=== PATIENT | male | born 1990 | race Two or more races ===

== ENCOUNTER 2024-06-22 14:53 | Emergency (ER) | payer MEDICAID, SELFPAY ==
[2024-06-22 15:06] VITALS: BP 150/76; PULSE 63; RESP 18; TEMP 36.7; O2SAT 97
[2024-06-22 15:07] VITALS: BMI 36.3
--- NOTE | 2024-06-22 15:59 | PD.EDWOUND ---
ED Wound/Laceration-RME/HPI General Chief Complaint: Wound/Laceration Stated Complaint: Right hand laceration Time Seen by Provider: 06/22/24 15:00 Arrival date/time: 06/22/24 14:53 RME / HPI RME / HPI narrative: 33-year-old male patient came in for evaluation regarding laceration to the right hand dorsal aspect. Patient sustained injury about 4 days ago with broken glass. Patient is able to bend and extend the fingers without any limitation. Patient denies any other injury. No medication was taken prior to arrival. Related Data Previous Rx's ?Medication ?Instructions ?Recorded ibuprofen 600 mg tablet 600 mg PO TIDWM ##9 09/10/11 ibuprofen 600 mg tablet 600 mg PO Q6H #20 tabs 01/30/19 acetaminophen 500 mg tablet 1,000 mg (2 x 500 mg) PO QID PRN 03/11/21 fever or pain #30 tabs azithromycin 250 mg tablet See Rx Instructions PO .COMPLEX #6 03/11/21 tabs ibuprofen 800 mg tablet 800 mg PO TID PRN pain #30 tabs 11/21/23 tramadol 37.5 mg-acetaminophen 325 1 tab PO Q6H PRN pain #15 tabs 11/21/23 mg tablet amoxicillin 875 mg-potassium 1 tab PO BID #14 tabs 06/22/24 clavulanate 125 mg tablet ibuprofen 800 mg tablet 800 mg PO TID PRN pain #30 tabs 06/22/24 Allergies Allergy/AdvReac Type Severity Reaction Status Date / Time No Known Allergies Allergy Verified 06/22/24 14:55 Review of Systems Review of Systems Narrative Review of Systems: Review of system reviewed and within normal limits except mentioned in HPI ED Exam Narrative Physical exam: VITAL SIGNS: Reviewed. GENERAL APPEARANCE: Alert and interactive, follows commands, no acute distress, HEAD AND FACE: Non-traumatic. ENT: PERRL, pink conjunctivitis, eyelid no trauma, Mucous membrane moist. NECK: Supple, nontender, no nuchal rigidity. CHEST: No tenderness, no crepitus, no paradoxical movement, no retractions. LUNGS: Clear, well ventilated, symmetric, no rales, no wheezing, no ronchi, no stridor, good breath sounds bilaterally. HEART: Regular rate, regular rhythm, no murmur, no gallops. ABDOMEN: Soft, positive bowel sounds, nondistended, no guarding, nontender, no rebound, no masses, RECTAL: Deferred. GENITAL: Deferred. NEUROLOGICAL: Gross motor function intact sensory function intact, Appropriate for age. MUSCULOSKELETAL: low back nontender, full range of motion. EXTREMITIES: Nontender, full range of motion. SKIN: Color pink, dry, no rash, + 3 x 2 cm open wound righthanddorsalaspect full range of motion of the finger, LYMPHATICS: Deferred. Course Quality Measures none Orders Category Date Time Status Ketorolac Inj [Toradol Inj] Med 06/22/24 15:58 Discontinued 30 mg IM X1 ONE Lidocaine 1% 20 ml [Xylocaine 1% 20 ML] Med 06/22/24 15:58 Discontinued 5 ml IM X1 ONE TET,DIP/PERT AC (Adult)-Tdap [Boostrix Adult (Tdap) Med 06/22/24 15:58 Discontinued Vacc] 0.5 ml IMI .ONCE ONE cephALEXin [Keflex] Med 06/22/24 15:59 Discontinued 500 mg PO X1 ONE Vital Signs Vital signs: Vital Signs Temperature 98.1 F 06/22/24 15:06 Pulse Rate 63 06/22/24 15:06 Respiratory Rate 18 06/22/24 15:06 Blood Pressure 150/76 H 06/22/24 15:06 Pulse Oximetry (%) 97 06/22/24 15:06 Oxygen Delivery Method Room Air 06/22/24 15:06 Procedures -ED Laceration Laceration 1: Site: hand Side (If applicable): right Size (cm): 4 Description: irregular and clean Depth: involves muscle layer Local Anesthetic: lidocaine 1% Amount of anesthesia used (mL): 10 Pre-repair: wound explored, irrigated extensively and wound margins revised Skin layer closed with: nylon Size (cm): 4-0 Number of sutures: 10 Technique: simple, interrupted Wound / Laceration MDM Narrative MDM Narrative:: 33-year-old male patient came in for evaluation regarding laceration to the right hand dorsal aspect. Patient sustained injury about 4 days ago with broken glass. Patient is able to bend and extend the fingers without any limitation. Patient denies any other injury. No medication was taken prior to arrival. Repair and suturing was done by me, see procedure notes Patient received Tdap, Keflex, Toradol Patient data External records reviewed:: None Clinical information provided by:: patient Social determinants that could affect healthcare access:: none Patient has the following chronic illnesses:: None How is presenting disease/condition affected by chronic disease/condition?: exacerbated by Evaluation data The following diagnostics were reviewed and interpreted by me:: radiology exam(s) Lab and/or radiology exams considered but not ordered:: None Interpretation Summary: None Medications / Prescriptions Medications or Prescriptions considered but not ordered:: None Medication administrations:: Medication Administration History Discontinued Medications Cephalexin HCl (Cephalexin 250 Mg Capsule) 500 mg PO X1 ONE Stop: 06/22/24 16:00 Last Admin: 06/22/24 16:17 Dose: 500 mg Documented By: Diphtheria/Tetanus/Acell Pertussis (Diphth,Pertuss(Acell),Tet Vac 0.5 Ml Syr- Adult) 0.5 ml IMi .ONCE ONE Stop: 06/22/24 15:59 Last Admin: 06/22/24 16:17 Dose: 0.5 ml Documented By: Ketorolac Tromethamine (Ketorolac Inj 60 Mg/2 Ml Vial) 30 mg IM X1 ONE Stop: 06/22/24 15:59 Last Admin: 06/22/24 16:16 Dose: 30 mg Documented By: Lidocaine HCl (Lidocaine Hcl 1% 20 Ml Vial) 5 ml IM X1 ONE Stop: 06/22/24 15:59 Last Admin: 06/22/24 16:16 Dose: 5 ml Documented By: Toradol, Boostrix, Keflex Consultations Consultation(s) initiated? (list below): No Consultation #1 (Physician, Specialty, Details): None Diagnosis Wound Differential Diagnosis: laceration and avulsion of skin Most likely diagnosis given after review of the tests above:: Hand laceration Admission Indicated Admission indicated?: not indicated Admission Request Was there a request for admission?: No Disposition Plan Disposition Plan: Discharge Discharge Attestation Discharge Attestation: The patient and all family members were given an opportunity to ask questions and understood the discharge instructions. Discharge instructions specifically effects, indications for sooner follow up or return to the emergency department, and the expected course of current diagnosis. Patient condition: Stable Discharge Plan Plan Patient Disposition: HOME (Self Care) Disposition Comment: Stable Prescriptions/Referrals Prescriptions/Med Rec: New amoxicillin-pot clavulanate 875-125 mg tablet 1 tab PO BID Qty: 14 0RF ibuprofen 800 mg tablet 800 mg PO TID PRN (Reason: pain) Qty: 30 0RF No Action ibuprofen 600 MG tablet 600 mg PO TIDWM Qty: 9 0RF ibuprofen 600 mg tablet 600 mg PO Q6H Qty: 20 0RF azithromycin 250 mg tablet See Rx Instructions .ROUTE .COMPLEX Qty: 6 0RF Rx Instructions: For 250 mg dose pack: take 500 mg today (day 1), then 250 mg for 4 days (days 2-5) acetaminophen 500 mg tablet 1,000 mg PO QID PRN (Reason: fever or pain) Qty: 30 0RF tramadol-acetaminophen 37.5-325 mg tablet 1 tab PO Q6H PRN (Reason: pain) Qty: 15 0RF ibuprofen 800 mg tablet 800 mg PO TID PRN (Reason: pain) Qty: 30 0RF Referrals: Kvng Pavon MD [Primary Care Provider] - In 1 week Problem List Clinical Impression: Visit for wound check, Hand laceration Patient/Caregiver Discharge Instructions Discharge Activity: activity as tolerated Education Materials: ED Laceration: All Closures Additional Instructions: Thank you for the opportunity for serving you today. You are stable for discharged . You are advised to: Follow-up with your PCP in 1 to 2 days Return to ED for worsening of symptoms, puslike drainage, redness, fever swelling Increase oral fluids Take medication as prescribed Daily dressing with Neosporin as needed For removal of sutures in 10 days Print Language: Mongolian Stand Alone Forms: [facility]lette Award Info., Patient Portal Info Letter
[2024-06-22] MEDS: KETOROLAC INJ 60 MG/2 ML VIAL 30 MG IM (16:16)
[2024-06-22] MEDS: LIDOCAINE HCL 1% 20 ML VIAL 5 ML IM (16:16)
[2024-06-22] MEDS: DIPHTH,PERTUSS(ACELL),TET VAC 0.5 ML SYR- ADULT IMi (16:17)
[2024-06-22] MEDS: cephALEXin 250 MG CAPSULE 500 MG PO (16:17)
== END 2024-06-22 17:08 | disposition home or self-care (01) ==
PROVIDERS: Emergency Provider Emergency Medicine; PCP Family Medicine
DX: S61.411A Laceration without foreign body of right hand, initial encounter (principal); W25.XXXA Contact with sharp glass, initial encounter
CPT/HCPCS: 12002; 90471; 90715; 96372; 99283; J1885; J3490; A9270